=== PATIENT | male | born 1940 ===

== ENCOUNTER 2017-03-12 00:01 | Emergency (ER) | payer MEDICARE, MEDICAID ==
[2017-03-12 00:01] VITALS: BMI 23.1
[2017-03-12] MEDS ORDERED: Acetaminophen-Codeine 300/30 mg Tab PO STA (00:23)
[2017-03-12 00:26] VITALS: BP 116/68; PULSE 88; RESP 18; TEMP 98.2; O2SAT 98
--- NOTE | 2017-03-12 01:11 | C.PDOC ---
History Of Present Illness The patient, a 76 y/o male, presents to the ED for evaluation of intermittent right-sided neck which began around 4 days ago after waking up from sleep. He notes his pain is exacerbated with neck movement. Patient notes he took some Tylenol without relief. Patient denies fever, chills, headache, dizziness, CP, SOB, extremity numbness/weakness, or direct trauma/injury to the affected area. Time Seen by Provider: 03/12/17 00:12 Chief Complaint (Nursing): Back Pain History Per: Patient History/Exam Limitations: no limitations Onset/Duration Of Symptoms: Days (4), Intermittent Episodes Current Symptoms Are (Timing): Still Present Quality Of Discomfort: "Pain" Previous Symptoms: Neck Pain (right-sided ) Associated Symptoms: denies: Incontinence, New Weakness, New Numbness Exacerbating Factor(s): Movement Additional History Per: Patient Past Medical History Reviewed: Historical Data, Nursing Documentation, Vital Signs Vital Signs: Last Vital Signs Temp 98.2 F 03/12/17 00:12 Pulse 88 03/12/17 00:12 Resp 18 03/12/17 00:12 BP 116/68 03/12/17 00:12 Pulse Ox 98 03/12/17 05:34 - Medical History PMH: HTN, Hypercholesterolemia Surgical History: No Surg Hx - [facility] Procedures COLONOSCOPY (08/03/14) Family History: States: Unknown Family Hx - Social History Hx Tobacco Use: No Hx Alcohol Use: No Hx Substance Use: No - Immunization History Hx Tetanus Toxoid Vaccination: No Hx Influenza Vaccination: Yes Hx Pneumococcal Vaccination: No Review Of Systems Constitutional: Negative for: Fever, Chills Musculoskeletal: Positive for: Neck Pain (right-sided ) Neurological: Negative for: Weakness, Numbness, Headache, Dizziness Physical Exam - Physical Exam Appears: Non-toxic, No Acute Distress Skin: Normal Color, Warm, Dry Head: Atraumatic, Normacephalic Eye(s): bilateral: Normal Inspection Oral Mucosa: Moist Throat: Normal, No Erythema, No Exudate Neck: Decreased ROM (secondary to pain with lateral rotation of neck ), No Midline Cervical Tenderness, Paracervical Tenderness (right-sided ), Supple Chest: Symmetrical, No Deformity, No Tenderness Cardiovascular: Rhythm Regular Respiratory: Normal Breath Sounds Extremity: Normal ROM, Capillary Refill (less than 2 seconds ) Neurological/Psych: Oriented x3, Normal Speech, Normal Cognition, Normal Motor, Normal Sensation, Other (no focal deficits ) Gait: Steady ED Course And Treatment O2 Sat by Pulse Oximetry: 98 (on RA) Pulse Ox Interpretation: Normal Progress Note: Patient states he is scheduled for a cardiac surgery in 3 days and is unable to take NSAIDS. Patient received Tylenol/Codeine PO and Flexeril PO. Cervical Spine AP/LAT XR ordered and reviewed. On reassessment, patient is resting comfortably, showing no signs of distress and reports an improvement in his pain. Pt is stable for discharge and is advised to follow up with his PMD within 1-2 days for further evaluation. 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 - Scribe Statement The provider has reviewed the documentation as recorded by the Scribe (Jing Loya) All medical record entries made by the Scribe were at my direction and personally dictated by me. I have reviewed the chart and agree that the record accurately reflects my personal performance of the history, physical exam, medical decision making, and the department course for this patient. I have also personally directed, reviewed, and agree with the discharge instructions and disposition.
--- NOTE | 2017-03-12 09:14 | RAD ---
PROCEDURE: Cervical Spine Radiographs. HISTORY: Pain. COMPARISON: None. FINDINGS: BONES: Vertebral bodies are maintained in height. The transverse processes and posterior elements are intact. Normal alignment is maintained. Straightening of the normal lordotic curvature indicates possible muscular spasm. The atlantoaxial articulation and odontoid process are intact. DISC SPACES: There is narrowing at the C5-6 and C6-7 disc spaces associated with anterior osteophytes, consistent with degenerative disc disease. The remaining intervertebral discs are maintained in height. SOFT TISSUES: Normal. No prevertebral soft tissue swelling. OTHER FINDINGS: None. IMPRESSION: Degenerative disc disease C5-6 and C6-7. No fracture/ dislocation. Possible muscular spasm.
== END 2017-03-12 01:33 | disposition home or self-care (01) ==
LOC: C.ER 00:01
DX: S16.1XXA Strain of muscle, fascia and tendon at neck level, initial encounter (principal); X58.XXXA Exposure to other specified factors, initial encounter